=== PATIENT | female | born 1960 | race Caucasian/White ===

== ENCOUNTER 2025-05-27 08:48 | Day surgery (SDC) | payer BC, SELFPAY ==
--- NOTE | 2025-05-16 07:22 | EXP.HP ---
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 The patient does have a long history of IBS?C with incomplete bowel evacuation. 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 She had 2 coronary stents in September and is on Eliquis and Plavix. She had the PFO repair in December. Since the CVA/fall she has had difficulty with swallowing and dysphagia. She feels as if food gets hung up at the top of her esophagus and this usually occurs with meats or breads and sometimes peanut butter and crackers. She does get a lot of bloating and some fullness. She reports no nausea or vomiting she gets rare heartburn and reports no food regurgitation. The patient does have a personal history of adenomatous colon polyps and her last colonoscopy with me was in October 2021 at which time she did not have any colon polyps. She did have 4 colon polyps at time of colonoscopy in 2018 and 2 polyps in 2015. The patient does take MiraLAX and stool softeners every morning along with Konsyl Gummies. The patient has seen ENT and had laryngoscopy showing pharyngeal changes of reflux but the patient does not report reflux. The patient did see speech pathology and had modified barium swallow. This did show some narrowing in the lower esophagus. The patient's last EGD was in [place] in 2012 (Lex Solares MD). The examination is deemed medically necessary for EGD and colonoscopy. The patient has been seen, interviewed and examined prior to the procedure by both myself and the anesthesia provider. [facility] Disclaimer: The information contained in this section may have been updated after the patient was seen, as this information can be updated by other users. Medical History Stroke Sleep apnea Multiple sclerosis Liver disease Irritable bowel syndrome Internal hemorrhoids High cholesterol High blood pressure Heart disease Fundic gland polyps of stomach, benign GERD with esophagitis Diverticulosis Diverticulitis Diabetes mellitus Colon polyps Asthma Surgical History History of lumbar fusion History of loop recorder History of surgical closure of patent foramen ovale (PFO) H/O colonoscopy with polypectomy History of tonsillectomy History of right shoulder replacement History of fusion of cervical spine History of heart artery stent History of cholecystectomy Family History Grandfather Prostate cancer Sister Skin cancer Grandmother Uterine cancer Father Skin cancer Brother Leukemia Other Family history of CVA Family history of heart disease Social History (Updated 05/27/25 @ 09:29 by Ashley Ralph CRNA) Smoking Status: Never smoker alcohol intake: current alcohol intake frequency: holidays/special occasions only substance use type: unknown current occupational status: retired Travel in the last 8 weeks?: None Have you lived/traveled outside US in past 30 days?: No Contact w/someone who lives/traveled outside US past 30 days?: No Exposure to someone with infectious disease in past 14 days?: No Do you have a fever (greater than 100.4 F or 38 C)?: No Have you tested positive for COVID-19?: No Exposed to someone with COVID-19 in past 14 days?: No Do you have a sore throat?: No Do you have a cough?: No Do you have any weakness?: No Do you have any diarrhea?: No Are you experiencing any unusual bleeding?: No Do you have any muscle aches/pain?: No Do you have any abdominal pain?: No Are you experiencing loss of taste or smell?: No Review of Systems Review of Systems Review of systems (narrative): Negative *Cardiovascular Comments: Negative *Gastrointestinal Comments: Negative *Genitourinary Comments: Negative *Musculoskeletal Comments: Negative *Neurologic Comments: Negative Meds Home Medications and Allergies Home Medications ?Medication ?Instructions ?Recorded ?Confirmed ?Type acetaminophen 650 mg 650 mg PO Q12H 03/19/25 05/27/25 History tablet,extended release (Tylenol 8 Hour) amoxicillin 875 mg tablet 875 mg PO DAILY 03/19/25 05/27/25 History apixaban 5 mg tablet (Eliquis) 5 mg PO BID 03/19/25 05/27/25 History atorvastatin 80 mg tablet (Lipitor) 80 mg PO HS 03/19/25 05/27/25 History buspirone 10 mg tablet 10 mg PO BID PRN dyspepsia #180 03/19/25 05/27/25 Rx tabs carvedilol 6.25 mg tablet 6.25 mg PO BID 03/19/25 05/27/25 History cetirizine 10 mg capsule (Zyrtec) 10 mg PO HS 03/19/25 05/27/25 History cholecalciferol (vitamin D3) 125 125 mcg PO DAILY 03/19/25 05/27/25 History mcg (5,000 unit) capsule clopidogrel 75 mg tablet (Plavix) 75 mg PO DAILY 03/19/25 05/27/25 History coenzyme Q10 200 mg capsule 200 mg PO BID 03/19/25 05/27/25 History docusate sodium 100 mg capsule 100 mg PO BID 03/19/25 05/27/25 History (Colace) empagliflozin 25 mg tablet 25 mg PO DAILY 03/19/25 05/27/25 History (Jardiance) esomeprazole magnesium 40 mg 40 mg PO DAILY 03/19/25 05/27/25 History capsule,delayed release icosapent ethyl 1 gram capsule 2 g PO BID 03/19/25 05/27/25 History (Vascepa) insulin glargine-yfgn 100 unit/mL 24 unit SQ DAILY 03/19/25 05/27/25 History (3 mL) subcutaneous pen (Semglee (insulin glargine-yfgn) Pen) isosorbide mononitrate 30 mg 30 mg PO DAILY 03/19/25 05/27/25 History tablet,extended release 24 hr levetiracetam 500 mg tablet 500 mg PO BID 03/19/25 05/27/25 History (Keppra) losartan 100 mg tablet 100 mg PO DAILY 03/19/25 05/27/25 History magnesium glycinate 400 mg PO HS 03/19/25 05/27/25 History methocarbamol 750 mg tablet 750 mg PO TID 03/19/25 05/27/25 History nitroglycerin 0.4 mg sublingual 0.4 mg sublingual Q5M PRN Pain 03/19/25 05/27/25 History tablet polyethylene glycol 3350 17 17 g PO DAILY 03/19/25 05/27/25 History gram/dose oral powder (Miralax) sitagliptin phosphate 100 mg 100 mg PO DAILY 03/19/25 05/27/25 History tablet (Januvia) tramadol 50 mg tablet 50 mg PO BID PRN Pain 03/19/25 05/27/25 History vitamin E (dl, acetate) 180 mg 180 mg PO DAILY 03/19/25 05/27/25 History (400 unit) capsule bupropion HCl 150 mg 24 hr tablet, 150 mg PO DAILY 05/27/25 05/27/25 History extended release (Wellbutrin XL) daptomycin 350 mg intravenous 500 mg IV Q48H 05/27/25 05/27/25 History solution New Prescriptions to Start Prescriptions: Allergies Allergy/AdvReac Type Severity Reaction Status Date / Time aspirin Allergy Severe Angio edema Verified 05/27/25 09:11 NSAIDS (Non-Steroidal Allergy Severe Angio Edema Verified 05/27/25 09:11 Anti-Inflamma Sulfa (Sulfonamide Allergy Severe Rash Verified 05/27/25 09:11 Antibiotics) sulfamethoxazole (From Allergy Severe Rash Verified 05/27/25 09:11 Bactrim) thimerosal Allergy Severe Rash Verified 05/27/25 09:11 ceftaroline fosamil (From Allergy Unknown Verified 05/27/25 09:11 Teflaro) allergy reaction hydrocodone (From Lortab) AdvReac Mild Itching Verified 05/27/25 09:11 adhesives Allergy Severe Chemical Uncoded 03/19/25 12:03 Burn Exam *Routine HEENT Exam Head: Present normocephalic Eye: Present EOMI and PERRL ENT: Present mucous membranes moist *Routine Neck Exam Neck: Present supple *Routine Respiratory Exam Respiratory: Present CTA bilaterally *Routine Cardiovascular Exam Cardiovascular: Present RRR *Routine Abdominal Exam Abdominal: Present soft and normoactive bowel sounds; Absent tenderness *Routine Rectal Exam Rectal:: deferred *Routine Genitalia Exam Genitalia:: deferred *Routine Extremities Exam Extremities: Absent cyanosis, clubbing or edema *Routine Skin Exam Skin: Present warm; Absent rash *Routine Neurological Exam Neurological: Present alert and oriented X3 Assessment and Plan *Assessment and plan (1) Screening for malignant neoplasm of colon: Status: Acute Category: Medical Code(s): Z12.11 - Encounter for screening for malignant neoplasm of colon (2) Bloating: Status: Acute Category: Medical Code(s): R14.0 - Abdominal distension (gaseous) (3) Dysphagia: Status: Acute Category: Medical Code(s): R13.10 - Dysphagia, unspecified (4) Abnormal barium swallow: Status: Acute Category: Medical Code(s): R93.3 - Abnormal findings on diagnostic imaging of other parts of digestive tract (5) Personal history of adenomatous and serrated colon polyps: Status: Acute Category: Medical Code(s): Z86.0101 - Personal history of adenomatous and serrated colon polyps (6) Irritable bowel syndrome: Status: Acute Category: Medical Code(s): K58.9 - Irritable bowel syndrome, unspecified Plan A/P: 1. Dysphagia with abnormal barium swallow and reported GERD for upper endoscopy and screening/surveillance due to personal history of colon polyps for colonoscopy is the preprocedural diagnosis. The patient will be anesthetized/sedated using MAC sedation. The patient has been seen and examined. Cardiac and lung assessment prior to the examination is stable. Proceed with planned diagnostic EGD and screening/surveillance colonoscopy.
--- NOTE | 2025-05-27 07:05 | P.PCN_ITS ---
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 The patient does have a long history of IBS?C with incomplete bowel evacuation. 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 She had 2 coronary stents in September and is on Eliquis and Plavix. She had the PFO repair in December. Since the CVA/fall she has had difficulty with swallowing and dysphagia. She feels as if food gets hung up at the top of her esophagus and this usually occurs with meats or breads and sometimes peanut butter and crackers. She does get a lot of bloating and some fullness. She reports no nausea or vomiting she gets rare heartburn and reports no food regurgitation. The patient does have a personal history of adenomatous colon polyps and her last colonoscopy with [place] was in October 2021 at which time she did not have any colon polyps. She did have 4 colon polyps at time of colonoscopy in 2018 and 2 polyps in 2015. The patient does take MiraLAX and stool softeners every morning along with Konsyl Gummies. The patient has seen ENT and had laryngoscopy showing pharyngeal changes of reflux but the patient does not report reflux. The patient did see speech pathology and had modified barium swallow. This did show some narrowing in the lower esophagus. The patient's last EGD was in [place] in 2012 (Lex Solares MD). The examination is deemed medically necessary for EGD and colonoscopy Procedure: Prior to the procedure, a history and physical exam was performed, and patient's medications and allergies were reviewed. The risks, benefits and alternatives of the sedation and procedure were discussed with the patient. All questions were answered and informed consent was obtained. The patient was brought to the procedure room. Patient identification and proposed procedure were verified by the physician and the nurse. The patient was placed in a left lateral decubitus position and the scope was passed under direct vision. Throughout the procedure, the patient's blood pressure, pulse, and oxygen saturations were monitored continuously. The colonoscopy was accomplished without difficulty. The patient tolerated the procedure well. Findings: On digital rectal examination there was normal rectal tone. There were external hemorrhoidal tags. The colonoscope was introduced through the anal canal to the rectum and advanced to the cecum. The ileocecal valve and appendiceal orifice were identified. The scope was advanced a short distance into the ileum which appeared grossly normal. The scope was then withdrawn into the colon. The cecum and ascending colon were normal. There was a single 5 mm sessile polyp in the transverse colon removed via cold snare polypectomy. There were scattered diverticuli throughout the descending and sigmoid colon (LEFT colon). The rectum itself was normal. Upon retroflexion within the rectum there were grade 1-2 internal hemorrhoids. The preparation was excellent throughout with Leupp Preparation Score of 9. The cecal time was 12 minutes. Impression: 1. Diminutive 5 mm transverse colon polyp 2. Left-sided diverticulosis 3. Grade 1-2 internal hemorrhoids Plan: I will follow-up the polyp histology and recommend repeat screening/surveillance colonoscopy again in 5-7 years based upon the polyp pathology.
--- NOTE | 2025-05-27 07:05 | P.PCN_ITS ---
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 The patient does have a long history of IBS?C with incomplete bowel evacuation. 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 She had 2 coronary stents in September and is on Eliquis and Plavix. She had the PFO repair in December. Since the CVA/fall she has had difficulty with swallowing and dysphagia. She feels as if food gets hung up at the top of her esophagus and this usually occurs with meats or breads and sometimes peanut butter and crackers. She does get a lot of bloating and some fullness. She reports no nausea or vomiting she gets rare heartburn and reports no food regurgitation. She does still get generalized abdominal pain and discomfort. The patient does have a personal history of adenomatous colon polyps and her last colonoscopy with me was in October 2021 at which time she did not have any colon polyps. She did have 4 colon polyps at time of colonoscopy in 2018 and 2 polyps in 2015. The patient does take MiraLAX and stool softeners every morning along with Konsyl Gummies. The patient has seen ENT and had laryngoscopy showing pharyngeal changes of reflux but the patient does not report reflux. The patient did see speech pathology and had modified barium swallow. This did show some narrowing in the lower esophagus. The patient's last EGD was in [place] in 2012 (Lex Solares MD). The examination is deemed medically necessary for EGD and colonoscopy. Procedure: Prior to the procedure, a history and physical exam was performed, and patient's medications and allergies were reviewed. The risks, benefits and alternatives o f the sedation and procedure were discussed with the patient. All questions were answered and informed consent was obtained. The patient was brought to the procedure room. Patient identification and proposed procedure were verified by the physician and the nurse. The patient was placed in a left lateral decubitus position and the scope was passed under direct vision. Throughout the procedure, the patient's blood pressure, pulse, and oxygen saturations were monitored continuously. The upper GI endoscopy was accomplished without difficulty. The patient tolerated the procedure well. Findings: The scope was passed directly into the upper esophagus and advanced to the third portion of the duodenum. The post bulbar duodenum, ampulla and duodenal bulb were normal with normal mucosa and conniventes. 2 cold biopsies were taken from the second portion of the duodenum for the disaccharidase assay. 2 cold biopsies were taken from the first portion of the duodenum and duodenal bulb to rule out celiac disease. The scope was withdrawn through a normal duodenal bulb and pylorus into the stomach. There was bile reflux with mild linear reactive gastropathy of the antrum. Cold biopsies were obtained. There were some gastric fundic gland polyps in the body and fundus of the stomach. Upon retroflexion there was a very small sliding 1 to 2 cm hiatal hernia. The scope was then withdrawn into the esophagus. There was no evidence of reflux esophagitis or Chavez's. Biopsies were taken at the GE junction. There were tertiary contractions and evidence of mild to moderate esophageal dysmotility. There were no strictures, rings, webs, corrugation, furrowing or inlet patch. The entire esophagus was dilated to 60 [place]/20 mm with a TTS hydrostatic balloon. There was minimal resistance. The remainder of the esophageal mucosa was normal. Impression: 1. Nonerosive GERD with moderate esophageal dysmotility and very small sliding 1 to 2 cm hiatal hernia 2. Bile reflux with mild linear reactive gastropathy of antrum 3. Gastric fundic gland polyps Plan: I will follow-up the biopsies and disaccharidase assay. The patient's dysphagia is related to the esophageal dysmotility and some pharyngeal dysphagia related to her prior CVA. She is working with speech pathology. I will discuss with the patient and family. I will proceed with colonoscopy.
--- NOTE | 2025-05-27 08:45 | SUR.PREOP ---
Pt called @ this time in regards to procedure time. No answer.
[2025-05-27 09:07] VITALS: BMI 42.0
--- NOTE | 2025-05-27 09:28 | P.PNANES_ITS ---
[facility] Disclaimer: The information contained in this section may have been updated after the patient was seen, as this information can be updated by other users. Medical History Stroke Sleep apnea Multiple sclerosis Liver disease Irritable bowel syndrome Internal hemorrhoids High cholesterol High blood pressure Heart disease Fundic gland polyps of stomach, benign GERD with esophagitis Diverticulosis Diverticulitis Diabetes mellitus Colon polyps Asthma Surgical History History of lumbar fusion History of loop recorder History of surgical closure of patent foramen ovale (PFO) H/O colonoscopy with polypectomy History of tonsillectomy History of right shoulder replacement History of fusion of cervical spine History of heart artery stent History of cholecystectomy Family History Grandfather Prostate cancer Sister Skin cancer Grandmother Uterine cancer Father Skin cancer Brother Leukemia Other Family history of CVA Family history of heart disease Social History Smoking Status: Never smoker alcohol intake: current alcohol intake frequency: holidays/special occasions only substance use type: unknown current occupational status: retired Travel in the last 8 weeks?: None [facility] Anesthesia Checklist Patient Identification Patient Identification: Arm Band and Verbal (Name & ) Structural Data Admitted From: Home Planned Operative Procedure/s: colonscopy and EGD Consent for Planned Operative Procedure(s) Verified: Yes Verified Documents: Surgical Consent and History and Physical NPO Status Verified Time NPO: 00:00 Additional verifications Anesthesia Reactions: No Previous Colonoscopy: Yes Airway Assessment Mallampati Score:: Class II Dentition: Good Dentition Neurological Assessment Level of Consciousness: Awake, Alert and Appropriate Hx Seizures: No Anesthesia Plan Anesthesia Risk discussed: Yes Anesthesia Plan: Verified ASA Class: III Anesthesia Type: MAC
[2025-05-27 09:30] VITALS: BP 130/68; PULSE 58; RESP 18; TEMP 36.7; O2SAT 98
[2025-05-27 09:30] LABS: POC Glucose,Bedside 155 gm/dL (70-110)
[2025-05-27 10:28] VITALS: BP 86/37; PULSE 55; RESP 16; TEMP 36.2; O2SAT 98
[2025-05-27 10:38] VITALS: BP 127/69; PULSE 58; RESP 18; TEMP 36.2; O2SAT 98
[2025-05-27 10:48] VITALS: BP 134/67; PULSE 56; RESP 18; TEMP 36.2; O2SAT 98
[2025-05-27 10:58] VITALS: BP 139/72; PULSE 57; RESP 18; TEMP 36.2; O2SAT 98
[2025-05-29 16:12] LABS: Interpretation Notes (.); Lactase 12.9 (>/= 14.0); Maltase 116.07 (>/= 110.0); Palatinase 8.6 (>/= 8.5); Reference Notes (.); Sucrase 27.51 (>/= 25.0)
== END 2025-05-27 10:58 | disposition home or self-care (01) ==
PROVIDERS: PCP Internal Medicine; Visit Provider Internal Medicine Gastroenterology
PROC: 0DJ08ZZ Inspection of Upper Intestinal Tract, Via Natural or Artificial Opening Endoscopic (ICD-10-PCS; CPT 45378; principal; 2025-05-27 10:00)
DX: Z12.11 Encounter for screening for malignant neoplasm of colon (principal); D12.3 Benign neoplasm of transverse colon; K64.0 First degree hemorrhoids; K64.1 Second degree hemorrhoids; K57.30 Diverticulosis of large intestine without perforation or abscess without bleeding; R13.10 Dysphagia, unspecified; K44.9 Diaphragmatic hernia without obstruction or gangrene; K31.89 Other diseases of stomach and duodenum; K31.7 Polyp of stomach and duodenum; G47.30 Sleep apnea, unspecified; K58.1 Irritable bowel syndrome with constipation; G35.D Multiple sclerosis, unspecified; E78.00 Pure hypercholesterolemia, unspecified; R14.0 Abdominal distension (gaseous); I10 Essential (primary) hypertension; K21.00 Gastro-esophageal reflux disease with esophagitis, without bleeding; E11.9 Type 2 diabetes mellitus without complications; J45.909 Unspecified asthma, uncomplicated; Z98.1 Arthrodesis status; Z96.611 Presence of right artificial shoulder joint; Z90.49 Acquired absence of other specified parts of digestive tract; Z79.899 Other long term (current) drug therapy; Z79.84 Long term (current) use of oral hypoglycemic drugs; Z79.4 Long term (current) use of insulin; Z88.6 Allergy status to analgesic agent; Z88.2 Allergy status to sulfonamides; Z88.8 Allergy status to other drugs, medicaments and biological substances; Z88.5 Allergy status to narcotic agent; Z86.73 Personal history of transient ischemic attack (TIA), and cerebral infarction without residual deficits; Z95.5 Presence of coronary angioplasty implant and graft; Z79.01 Long term (current) use of anticoagulants; Z86.0101 Personal history of adenomatous and serrated colon polyps
CPT/HCPCS: 43239; 43249; 45385; 82657; 82962; C1726; J2003; J2704